=== PATIENT | male | born 1960 | race Asian ===

== ENCOUNTER 2023-11-22 12:13 | Emergency (ER) | payer SELFPAY ==
[2023-11-22 12:13] VITALS: BMI 19.4
[2023-11-22 12:15] VITALS: BP 165/94
[2023-11-22 12:56] VITALS: BP 161/88
--- NOTE | 2023-11-22 13:09 | ED.GENMED ---
History of Present Illness
General
Chief Complaint: Chest Pain
Source: patient
Exam Limitations: none
Time Seen by Provider: 11/22/23 12:55
Travel History
Have you had any contact with someone who has COVID-19?: No
Do you have any symptoms of coronavirus? Fever > 100 degrees, chills, cough, shortness of breath, sore throat, loss of taste or smell, muscle aches, or headache?: No
History of Present Illness
History of Present Illness:
63-year-old male with history of [id number] diabetes and high blood pressure as well as reflux presents complaining of 2 weeks worth of intermittent pain to the chest that radiates into his jaw. This is not associate with any particular
exertion. It does not hurt worse to breathe. He denies of breath or hemoptysis. He moved here 2 months ago from [facility]. No prior cardiac issues. No leg swelling or calf pain. No vomiting. He is nauseous. No other complaints
Phy Exam
Physical Exam
Physical Exam:
General: Well-appearing male nontoxic no acute respiratory distress
HEENT: Normocephalic atraumatic
Heart: Regular rate and rhythm no murmurs
Lungs: Clear no wheeze or rales
Extremities: No cyanosis or edema
Abdomen is soft nontender nondistended no guarding rebound normal bowel sounds
Scores
Heart Score for Chest Pain Patients
STEMI patient?: No
History: Slightly or Non-Suspicious
ECG: Normal
Age: >45 - <65 years
Risk Factors: 1 or 2 Risk Factors
Troponin: </= Normal Limit
Heart Score for Chest Pain Patients: 2
Heart Score Risk: 2.5% MACE over next 6 weeks
Course
Orders/Labs/Results
Orders:
Orders
11/22/23 12:18
ECG [Electrocardiogram (*1)] Urgent
Reason for Study: Chest Pain
EKG- Treatment ONCE
11/22/23 13:06
CR Chest - 2 Views Urgent
Comment:
Reason For Exam: chest pain
11/22/23 13:23
Complete Blood Count/With Diff Urgent
Comprehensive Metabolic Panel Urgent
D-Dimer Urgent
Lipase Urgent
Troponin I Urgent
Abnormal Lab Results
11/22/23
13:23
MPV 11.9 H fL
(7.4-10.4)
Glucose 330 H mg/dl
(70-99)
11/22/23 13:23
11/22/23 13:23
Vital Signs
Initial and Last Documented VS:
Initial Vital Signs
Temp Pulse Resp BP Pulse Ox
97.7 F 79 20 165/94 97
11/22/23 12:15 11/22/23 12:15 11/22/23 12:15 11/22/23 12:15 11/22/23 12:15
Last Documented Vital Signs
Temp Pulse Resp BP Pulse Ox
97.7 F 77 18 161/88 98
11/22/23 12:15 11/22/23 12:56 11/22/23 12:56 11/22/23 12:56 11/22/23 12:56
MDM/Problems Addressed
Differential Diagnosis Includes:
Chest and jaw pain. Consider ACS versus reflux versus dissection. He has stable vital signs but does have risk factors of diabetes and hypertension. EKG through triage shows normal sinus rhythm. Will check troponin and D-dimer as well as x-ray.
*Critical Care Note
Total Time (30-74mins, 75-104mins- exclusive of procedures): Not Applicable
Update Note
Update Note:
Workup here essentially unremarkable other than elevated blood sugar. Patient is a known diabetic. Troponin and D-dimer undetectable. Chest x-ray clear. I believe the patient may have reflux causing discomfort in chest into the neck. There is
no widened mediastinum on the x-ray.
ED Attending Note
-
Portions of this chart may have been created with voice recognition software.� Occasional wrong word or��sound alike� substitutions may have occurred due to the inherent limitations of voice recognition software.
Discharge Plan
Departure
Patient Disposition: Home (Routine Discharge)
Date of Disposition: 11/22/23
Time of Disposition: 15:37
Patient with high blood pressure during this ER visit?: No
Discharge Problem:
Chest pain
Instructions: Chest Pain DCA Follow Up
Referrals:
NONE,* [Family Provider] -
Activity Restrictions/Additional Instructions:
Please return here for worsening symptoms. You may use Tylenol for pain. Follow-up with cardiology otherwise
Interventions
Interventions:
*Risk Screen - Suicide Last Done: 11/22/23 12:15
*General Assessment Last Done: 11/22/23 12:15
*Neglect/Abuse Screening Last Done: 11/22/23 12:15
*ED COVID-19 Vaccine History Last Done: 11/22/23 12:53
ED- Cardiac Assessment Last Done: 11/22/23 12:53
Discharge Date and Time
Print Language: Janneth
[2023-11-22 13:35] LABS: % Basophils 0.3 % (0-2); % Eosinophils 1.3 % (0-6); % Immature Granulocytes 0.3 % (0-0.5); % Lymphocytes 22.8 % (20.5-51.1); % Monocytes 7.1 % (1.7-9.3); % Neutrophils 68.2 % (42.2-75.2); Absolute Eosinophils 0.1 10^3/uL (0-0.7); Absolute Lymphocytes 1.6 10^3/uL (1.2-3.4); Absolute Monocytes 0.5 10^3/uL (0.1-0.6); Absolute Neutrophils 4.7 10^3/uL (1.4-6.5); Hematocrit 44.3 % (39.0-52.0); Hemoglobin 15.2 g/dL (13.0-18.0); Mean Corp Hgb Conc. 34.3 g/dL (33.0-37.0); Mean Corpuscular Hgb 29.1 pg (27.0-31.0); Mean Corpuscular Volume 84.7 fL (80.0-94.0); Mean Platelet Volume 11.9 fL (7.4-10.4); Nucleated Red Blood Cells % 0 % (-); Platelet Count 189 10^3/uL (130-400); Red Blood Cell Count 5.23 10^6/uL (4.70-6.10); Red Cell Dist. Width 13.3 % (11.5-14.5); White Blood Cell Count 6.9 10^3/uL (4.8-10.8)
[2023-11-22 13:48] LABS: D-Dimer < 0.27 ug/mlFEU (0.00-0.50)
[2023-11-22 13:54] LABS: ALT (SGPT) 46 U/L (0-50); AST (SGOT) 42 U/L (17-59); Albumin 4.6 g/dl (3.5-5.0); Alkaline Phosphatase 111 U/L (38-126); Blood Urea Nitrogen 17 mg/dl (9-20); Calcium 9.8 mg/dl (8.4-10.2); Carbon Dioxide 29 mmol/L (22-30); Chloride 100 mmol/L (98-107); Estimated Creatinine Clearance 77 ml/min; Glucose 330 mg/dl (70-99); Lipase 202 U/L (23-300); Potassium 4.3 mmol/L (3.5-5.1); Sodium 136 mmol/L (135-145); Total Bilirubin 0.6 mg/dl (0.2-1.3); Total Protein 7.8 g/dl (6.3-8.2); eGFR > 60.00
[2023-11-22 14:04] LABS: Troponin I < 0.012 ng/ml
[2023-11-22 15:56] VITALS: BP 148/90
== END 2023-11-22 15:58 | disposition home or self-care (01) ==
LOC: EMR 12:13
PROVIDERS: Physician Assistant; EMERGENCY PHYSICIAN Student in an Organized Health Care Education/Training Program
DX: R07.89 Other chest pain (principal); R11.0 Nausea; R68.84 Jaw pain; E11.65 Type 2 diabetes mellitus with hyperglycemia; I10 Essential (primary) hypertension; K21.9 Gastro-esophageal reflux disease without esophagitis
CPT/HCPCS: 99283; 71046; 80053; 83690; 84484; 85025; 85379; 93005